=== PATIENT | female | born 1990 | race Two or more races ===

== ENCOUNTER 2021-08-28 21:40 | Inpatient (IN) | payer OTHER ==
[~2021-08-28] VITALS: Ht 180.3 cm; Wt 132.1 kg
[2021-08-28 22:27] LABS: Basophils # (auto) 0 10 ^3/uL (0-0.2); Basophils % (auto) 0.4 % (0.0-2.0); Eosinophils # (auto) 0.2 10 ^3/uL (0-0.8); Eosinophils % (auto) 3.1 % (0.0-7.0); Hematocrit 39.4 % (36.0-46.0); Hemoglobin 13.1 g/dL (12.2-16.2); Lymphocytes # (auto) 2.5 10 ^3/uL (0.4-5.4); Lymphocytes % (auto) 34.6 % (10.0-50.0); Mean Corpuscular Hemoglobin 28.9 pg (28.0-32.0); Mean Corpuscular Hgb Conc. 33.3 g/dL (32.0-36.0); Mean Corpuscular Volume 86.6 fL (80.0-100.0); Monocytes # (auto) 0.4 10 ^3/uL (0-1.3); Monocytes % (auto) 5.6 % (0.0-12.0); Neutrophils # (auto) 4.1 10 ^3/uL (1.6-8.6); Neutrophils % (auto) 56.3 % (37.0-80.0); Nucleated Red Blood Cells % 0.1 %; Red Blood Cells 4.55 10^6/uL (4.0-5.20); Red Cell Distribution Width 14.5 % (11.8-14.3); White Blood Cell 7.2 10^3/uL (4.4-10.8)
[2021-08-28] MEDS ORDERED: ACTIVATED CHARCOAL 50 GM/240 ML SOL PO ONE (22:30)
[2021-08-28 22:34] LABS: Urine WBC None Seen /hpf (0 - 5)
[2021-08-28 22:35] LABS: Albumin 3.7 g/dL (3.4-5.0); Calcium 8.9 mg/dL (8.5-10.1); Potassium 3.9 mmol/L (3.5-5.1); Salicylate < 1.7 mg/dL (2.8-20.0)
[2021-08-28 22:36] LABS: Acetaminophen < 2.0 ug/mL (10-30)
[2021-08-28 22:38] LABS: Bilirubin, Total 0.4 mg/dL (0.2-1.0); Total Protein 7.7 g/dL (6.4-8.2)
[2021-08-28 22:45] LABS: Urine Bacteria NONE SEEN /hpf (None Seen); Urine Blood Negative /uL (Negative); Urine Specific Gravity 1.002 (1.001-1.035)
[2021-08-29 05:04] LABS: Amphetamine Screen, Urine NEGATIVE (NEGATIVE); Barbiturate Scree,Urine NEGATIVE (NEGATIVE); Benzodiazephine Screen, Urine NEGATIVE (NEGATIVE); Cannabinoid Screen, Urine NEGATIVE (NEGATIVE); Cocaine Screen, Urine NEGATIVE (NEGATIVE); Opiate Scree,Urine NEGATIVE (NEGATIVE); Phencyclidine Screen, Urine NEGATIVE (NEGATIVE)
[2021-08-29 08:51] LABS: Albumin 3.5 g/dL (3.4-5.0); Anion Gap 9 (5-15); Blood Alcohol < 3.0 mg/dL (0-5); Blood Urea Nitrogen 12 mg/dL (7-18); Calcium 8.6 mg/dL (8.5-10.1); Carbon Dioxide 21 mmol/L (21-32); Chloride 110 mmol/L (98-107); Glucose 95 mg/dL (74-106); Magnesium 2.5 mg/dL (1.6-2.6); Sodium 140 mmol/L (136-145)
[2021-08-29 08:53] LABS: Alanine Aminotransferase 86 U/L (13-56); Aspartate Aminotransferase 44 U/L (15-37); BUN/Creatinine Ratio 10.2; GFR African American 68 mL/min; GFR Non-African American 56 mL/min
[2021-08-29 08:55] LABS: Alkaline Phosphatase 83 U/L (45-117); Bilirubin, Total 0.7 mg/dL (0.2-1.0); Total Protein 7.2 g/dL (6.4-8.2)
[2021-08-29] MEDS ORDERED: NITROGLYCERIN 0.4 MG SL TAB SL PRN ×2 (13:00→16:00)
[2021-08-29] MEDS ORDERED: MORPHINE SULFATE INJECTION 2 MG/ML SYRG IV PRN ×3 (13:00→16:00)
[2021-08-29] MEDS ORDERED: LORazepam 0.5 MG TAB PO PRN (16:00)
[2021-08-29] MEDS ORDERED: cefTRIAXone 1GM/50ML D5W 50 ML IV ONE (16:00)
[2021-08-29] MEDS ORDERED: DOCUSATE SOD 100 MG CAP PO PRN (16:00)
[2021-08-29] MEDS ORDERED: MULTIPLE VITAMIN TAB PO ONE (16:00)
[2021-08-29] MEDS ORDERED: THIAMINE 100mg/ml INJ (200mg/2ml VIAL) IV ONE (16:00)
[2021-08-29] MEDS ORDERED: HYDROcodone-ACET 5/325MG TAB PO PRN (16:00)
[2021-08-29] MEDS ORDERED: SODIUM CHLORIDE 0.9% 1,000 ML IV ONE (16:00)
[2021-08-29] MEDS ORDERED: FOLIC ACID 1 MG TAB PO ONE (16:00)
[2021-08-29] MEDS: chlordiazePOXIDE HCL 25 MG CAP PO SCH (16:00)
[2021-08-29] MEDS ORDERED: FAMOTIDINE (10MG/ML) 2ML VL IV ONE (16:00)
[2021-08-29] MEDS ORDERED: CLINDAMYCIN 600MG IV 50 ML IV ONE (16:00)
[2021-08-29] MEDS ORDERED: ALUM & MAG HYDROX-SIMETH LIQ(MAALOX) 30 ML PO PRN (16:00)
[2021-08-29] MEDS: SODIUM CHLORIDE 0.9% 1,000 ML IV SCH (16:10)
[2021-08-29 20:16] LABS: Cholesterol 198 mg/dL (< 200)
[2021-08-29 20:19] LABS: HDL Cholesterol 62 mg/dL (40-59); LDL Cholesterol 117 mg/dL (< 100); Triglycerides 135 mg/dL (< 150)
[2021-08-29 21:00] VITALS: BP 107/56
[2021-08-29 22:00] VITALS: BP 126/77
[2021-08-29] MEDS ORDERED: CLINDAMYCIN 600MG IV 50 ML IV SCH (22:00)
[2021-08-30] MEDS: chlordiazePOXIDE HCL 25 MG CAP PO SCH ×2 (01:41→08:00)
[2021-08-30] MEDS: FAMOTIDINE (10MG/ML) 2ML VL IV SCH ×2 (04:01→18:42)
[2021-08-30 05:26] VITALS: BP 115/71
[2021-08-30 05:33] LABS: Basophils # (auto) 0 10 ^3/uL (0-0.2); Basophils % (auto) 0.5 % (0.0-2.0); Eosinophils # (auto) 0.1 10 ^3/uL (0-0.8); Eosinophils % (auto) 1.7 % (0.0-7.0); Hematocrit 37.7 % (36.0-46.0); Hemoglobin 12.7 g/dL (12.2-16.2); Lymphocytes # (auto) 2.4 10 ^3/uL (0.4-5.4); Lymphocytes % (auto) 35.2 % (10.0-50.0); Mean Corpuscular Hemoglobin 30.2 pg (28.0-32.0); Mean Corpuscular Hgb Conc. 33.6 g/dL (32.0-36.0); Mean Corpuscular Volume 89.8 fL (80.0-100.0); Monocytes # (auto) 0.4 10 ^3/uL (0-1.3); Monocytes % (auto) 5.8 % (0.0-12.0); Neutrophils # (auto) 3.9 10 ^3/uL (1.6-8.6); Neutrophils % (auto) 56.8 % (37.0-80.0); Red Cell Distribution Width 14.3 % (11.8-14.3); White Blood Cell 6.8 10^3/uL (4.4-10.8)
[2021-08-30 05:49] LABS: INR 1.05 (0.9-1.15); Partial Thromboplastin Time 27.1 sec (23.6-33.0)
[2021-08-30 05:50] LABS: Albumin 3.6 g/dL (3.4-5.0); Calcium 8.6 mg/dL (8.5-10.1); Magnesium 2.8 mg/dL (1.6-2.6); Potassium 3.6 mmol/L (3.5-5.1)
[2021-08-30 05:52] LABS: BUN/Creatinine Ratio 10.6
[2021-08-30 05:57] LABS: Bilirubin, Total 0.8 mg/dL (0.2-1.0); Phosphorus 3.3 mg/dL (2.5-4.90)
[2021-08-30 07:21] LABS: Uric Acid 6.7 mg/dL (2.6-6.0)
[2021-08-30 08:30] VITALS: BP 123/83
[2021-08-30] MEDS: SODIUM CHLORIDE 0.9% 1,000 ML IV SCH (08:40)
[2021-08-30] MEDS: cefTRIAXone 1GM/50ML D5W 50 ML IV SCH ×2 (09:00→12:32)
[2021-08-30] MEDS ORDERED: FOLIC ACID 1 MG TAB PO SCH (10:00)
[2021-08-30] MEDS ORDERED: chlordiazePOXIDE HCL 25 MG CAP PO SCH (10:00)
[2021-08-30] MEDS: MULTIPLE VITAMIN TAB PO SCH (10:00)
[2021-08-30] MEDS: ENOXAPARIN SOD 40 MG/0.4 ML SYRINGE SC SCH (10:00)
[2021-08-30] MEDS ORDERED: chlordiazePOXIDE HCL 25 MG CAP PO PRN (12:15)
[2021-08-30] MEDS: FOLIC ACID 1 MG, MULTIPLE VITAMIN 10 ML, THIAMINE INJ 100 MG in D5W 5% 1,000 ML INJ SCH (12:25)
[2021-08-30 12:30] VITALS: BP 136/90
[2021-08-30] MEDS: CLINDAMYCIN 600MG IV 50 ML IV SCH ×2 (12:32→18:44)
[2021-08-30 17:00] VITALS: BP 128/76
[2021-08-30] MEDS ORDERED: LORazepam 0.5 MG TAB PO ONE (18:00)
[2021-08-30 22:00] VITALS: BP 140/77
[2021-08-31] MEDS: CLINDAMYCIN 600MG IV 50 ML IV SCH ×2 (02:51→09:10)
[2021-08-31] MEDS: SODIUM CHLORIDE 0.9% 1,000 ML IV SCH ×2 (02:51→04:47)
[2021-08-31] MEDS: FAMOTIDINE (10MG/ML) 2ML VL IV SCH (04:47)
[2021-08-31 08:00] VITALS: BP 129/77
[2021-08-31] MEDS: MULTIPLE VITAMIN TAB PO SCH (09:08)
[2021-08-31] MEDS: ENOXAPARIN SOD 40 MG/0.4 ML SYRINGE SC SCH (09:09)
[2021-08-31] MEDS ORDERED: chlordiazePOXIDE HCL 25 MG CAP PO SCH (10:00)
[2021-08-31 12:00] VITALS: BP 119/75
[2021-08-31] MEDS: FOLIC ACID 1 MG, MULTIPLE VITAMIN 10 ML, THIAMINE INJ 100 MG in D5W 5% 1,000 ML INJ SCH (12:00)
[2021-08-31 13:04] VITALS: BP 129/77
[2021-08-31 15:57] VITALS: BP 126/75
[2021-08-31 21:35] VITALS: BP 118/78
[2021-09-01 05:00] VITALS: BP 101/65
[2021-09-01] MEDS ORDERED: chlordiazePOXIDE HCL 25 MG CAP PO SCH (07:00)
[2021-09-01] MEDS: ONDANSETRON HCL 4 MG/2 ML VIAL IV PRN (08:19)
[2021-09-01] MEDS: LORazepam 0.5 MG TAB PO PRN (08:25)
[2021-09-01 09:00] VITALS: BP 131/83
[2021-09-01] MEDS: ENOXAPARIN SOD 40 MG/0.4 ML SYRINGE SC SCH (09:17)
[2021-09-01] MEDS: MULTIPLE VITAMIN TAB PO SCH (09:17)
[2021-09-01 14:00] VITALS: BP 111/60
[2021-09-01] MEDS: FOLIC ACID 1 MG, MULTIPLE VITAMIN 10 ML, THIAMINE INJ 100 MG in D5W 5% 1,000 ML INJ SCH (14:09)
[2021-09-01] MEDS: SODIUM CHLORIDE 0.9% 1,000 ML IV SCH (20:59)
[2021-09-01 22:00] VITALS: BP 130/85
[2021-09-02] MEDS: SODIUM CHLORIDE 0.9% 1,000 ML IV SCH ×2 (03:26→19:54)
[2021-09-02 05:00] VITALS: BP 102/85
[2021-09-02] MEDS: LORazepam 0.5 MG TAB PO PRN (08:29)
[2021-09-02 08:52] VITALS: BP 134/84
[2021-09-02] MEDS: MULTIPLE VITAMIN TAB PO SCH (09:32)
[2021-09-02] MEDS: ENOXAPARIN SOD 40 MG/0.4 ML SYRINGE SC SCH (09:32)
[2021-09-02] MEDS ORDERED: ACETAMINOPHEN 325 MG TAB PO PRN (10:45)
[2021-09-02 13:00] VITALS: BP 123/74
[2021-09-02] MEDS: FOLIC ACID 1 MG, MULTIPLE VITAMIN 10 ML, THIAMINE INJ 100 MG in D5W 5% 1,000 ML INJ SCH (13:04)
[2021-09-02 17:54] VITALS: BP 123/84
[2021-09-02] MEDS: ONDANSETRON HCL 4 MG/2 ML VIAL IV PRN ×2 (18:30→22:47)
== END 2021-09-02 23:30 | DRG 917 ==
LOC: ER 21:40 → EDBD 21:40 → TELE 08-29 12:52 → TELE-CENTR 08-29 21:00 → CENTRAL 08-31 17:53
PROVIDERS: ADMIT Hospitalist; ATTEND Family Medicine
DX: T43.202A Poisoning by unspecified antidepressants, intentional self-harm, initial encounter (principal); G92.9 Unspecified toxic encephalopathy; I21.A1 Myocardial infarction type 2; J69.0 Pneumonitis due to inhalation of food and vomit; F10.239 Alcohol dependence with withdrawal, unspecified; N17.9 Acute kidney failure, unspecified; Z68.41 Body mass index [BMI] 40.0-44.9, adult; E78.5 Hyperlipidemia, unspecified; F10.229 Alcohol dependence with intoxication, unspecified; F32.9 Major depressive disorder, single episode, unspecified; F41.9 Anxiety disorder, unspecified; K70.10 Alcoholic hepatitis without ascites; K76.0 Fatty (change of) liver, not elsewhere classified; E66.01 Morbid (severe) obesity due to excess calories; Z20.822 Contact with and (suspected) exposure to COVID-19; N18.2 Chronic kidney disease, stage 2 (mild); Z82.49 Family history of ischemic heart disease and other diseases of the circulatory system; Z91.51 Personal history of suicidal behavior; Y92.89 Other specified places as the place of occurrence of the external cause
CPT/HCPCS: 36415; 70450; 71045; 80053; 80061; 80307; 80320; 80329; 81001; 82306; 83036; 83735; 83880; 84100; 84443; 84484; 84550; 84702; 85025; 85610; 85730; 87040; 87426; 93005; 93306; G0378; J0696; J2405; J3490